=== PATIENT | male | born 1970 | race Caucasian/White ===

== ENCOUNTER → 2017-02-08 | Outpatient (CLI) | payer OTHER ==
[2017-02-08 12:31] LABS: URINE APPEARANCE CLEAR (CLEAR); URINE BILIRUBIN NEG (NEG); URINE COLOR YELLOW; URINE EPITHELIAL CELL AUTO 0-5 /lpf (0-5); URINE NITRITE NEG (NEG); URINE SPECIFIC GRAVITY 1.023 (1.000-1.030); UROBILINOGEN NEG (NEG)
[2017-02-08 12:37] LABS: MANUAL MICROSCOPIC REQUIRED? NO; REVIEW REQ? NO
[2017-02-08 12:58] LABS: ESTIMATED AVERAGE GLUCOSE 114 mg/dl; HA1C FLAG Normal (Normal)
[2017-02-08 13:02] LABS: CREATININE, URINE 80.6 mg/dl; URINE PROTIEN/CREAT RATIO 0.1 (0-0.2); URINE TOTAL PROTEIN 6.1 mg/dl (0-11.9)
[2017-02-08 17:44] LABS: BLOOD UREA NITROGEN 14 mg/dl (7-18); BUN/CREATININE RATIO 19.9 (10-20); CALCIUM 9.4 mg/dl (8.5-10.1); CARBON DIOXIDE 26 mmol/L (21-32); CHLORIDE 104 mmol/L (98-107); CREATININE 0.69 mg/dl (0.60-1.40); GLUCOSE 89 mg/dl (70-99); POTASSIUM 4.3 mmol/L (3.5-5.1); SODIUM 138 mmol/L (136-145)
[2017-02-08 17:54] LABS: THYROID STIMULATING HORMONE 0.489 uIu/ml (0.300-4.500)
== END | disposition home or self-care (01) ==
LOC: C.LABBFT 10:46
PROVIDERS: ATTEND Physician Assistant Medical
DX: I10 Essential (primary) hypertension (principal); R73.09 Other abnormal glucose

== ENCOUNTER → 2017-02-15 | Outpatient (CLI) | payer OTHER ==
--- NOTE | 2017-02-15 09:17 | DIAGNOSTIC IMAGING REPORT ---
(RENAL)RETROPERITON COMP HISTORY: Hypertension I10 [id number] COMPARISON: None. FINDINGS: Right kidney: Maximum dimension 11.1 cm. No evidence for hydronephrosis. Mild extrarenal pelvis. Normal corticomedullary differentiation and cortical thickness. Left kidney: Maximum dimension 12.0 cm. Normal corticomedullary differentiation and cortical thickness. Bladder: No bladder wall thickening. The bilateral ureteral jets were identified. IMPRESSION: Normal renal ultrasound. The above report was generated using voice recognition software. It may contain grammatical, syntax or spelling errors. Electronically signed by: Gutierrez Johnson M.D. 02/15/2017 9:16 AM Dictated Date/Time: 02/15/2017 9:15 AM
== END | disposition home or self-care (01) ==
LOC: C.ULTR 08:33
PROVIDERS: ATTEND Physician Assistant Medical
DX: I10 Essential (primary) hypertension (principal)

== ENCOUNTER → 2017-12-05 | Outpatient (CLI) | payer OTHER ==
[2017-12-05 12:39] LABS: BASO % 0.5 %; BASO ABS # 0.04 K/uL (0-0.2); EOS % 2.3 %; EOS ABS # 0.17 K/uL (0-0.5); HEMATOCRIT 44.8 % (42-52); IG# 0.02 K/uL (0.00-0.02); LYMPH % 29.4 %; LYMPH ABS # 2.22 K/uL (1.2-3.4); MEAN CELL VOLUME 93.1 fL (80-100); MEAN CORPUSCULAR HEMOGLOBIN 31.2 pg (25-34); MEAN CORPUSCULAR HGB CONC 33.5 g/dl (32-36); MEAN PLATELET VOLUME 10.3 fL (7.4-10.4); MONO % 10.9 %; MONO ABS # 0.82 K/uL (0.11-0.59); NEUT % 56.6 %; NEUT ABS # 4.28 K/uL (1.4-6.5); PLATELET COUNT 237 K/uL (130-400); RED CELL DISTRIBUTION WIDTH CV 13.4 % (11.5-14.5); RED CELL DISTRIBUTION WIDTH SD 45.7 fL (36.4-46.3); WHITE BLOOD COUNT 7.55 K/uL (4.8-10.8)
[2017-12-05 13:37] LABS: ALBUMIN 3.9 gm/dl (3.4-5.0); ALKALINE PHOSPHATASE 68 U/L (45-117); ALT/SGPT 56 U/L (12-78); AST/SGOT 18 U/L (15-37); BLOOD UREA NITROGEN 16 mg/dl (7-18); CALCIUM 8.9 mg/dl (8.5-10.1); CARBON DIOXIDE 25 mmol/L (21-32); CHOLESTEROL 179 mg/dl (0-200); CREATININE 0.76 mg/dl (0.60-1.40); GLUCOSE 97 mg/dl (70-99); LDL CHOLESTEROL CALCULATED 107 mg/dl; POTASSIUM 3.9 mmol/L (3.5-5.1); SODIUM 136 mmol/L (136-145); TOTAL PROTEIN 7.7 gm/dl (6.4-8.2)
== END | disposition home or self-care (01) ==
LOC: C.LABBFT 09:42
PROVIDERS: ATTEND Internal Medicine
DX: I10 Essential (primary) hypertension (principal)

== ENCOUNTER 2024-05-30 14:20 | Observation (INO) ==
--- NOTE | 2024-05-30 14:50 | ED Triage Note ---
Date of Service May 30, 2024 Provider in Triage Author: Jeannie Cheng History of Present Illness This patient was briefly evaluated while in triage. An abbreviated physical exam was performed. This patient is a 54-year-old Male who presents to the ED for evaluation sick x 4 days cough, fevers, congestion, nausea, diarrhea since Tuesday, SOB seen by PCP Covid and Flu negative, creatinine elevated from baseline to 1.68 weight loss Physical Exam GENERAL: NAD, T37.6 CARDIOVASCULAR: RRR RESPIRATORY: CTA ABDOMEN: BS x 4. Nontender to palpation. Initial orders for labs and / or imaging were placed and patient was placed in the waiting area until a bed is available. Please see further documentation for the full ED course.
[2024-05-30] MEDS: SODIUM CHLORIDE 0.9% 1,000 ML IV SCH (15:42)
[2024-05-30 15:54] LABS: Adenovirus PCR Not Detected (NotDetected); Bordetella parapertussis PCR Not Detected (NotDetected); Bordetella pertussis PCR Not Detected (NotDetected); Chlamydia pneumoniae PCR Not Detected (NotDetected); Coronavirus 229E PCR Not Detected (NotDetected); Coronavirus CoV-2 (COVID19)PCR Not Detected (NotDetected); Coronavirus HKU1 PCR Not Detected (NotDetected); Coronavirus NL63 PCR Not Detected (NotDetected); Coronavirus OC43PCR Not Detected (NotDetected); Human Metapneumovirus PCR Not Detected (NotDetected); Influenza A (H3) PCR DETECTED (NotDetected); Influenza B PCR Not Detected (NotDetected); Mycoplasma pneumoniae PCR Not Detected (NotDetected); Parainfluenza Virus 1 PCR Not Detected (NotDetected); Parainfluenza Virus 2 PCR Not Detected (NotDetected); Parainfluenza Virus 3 PCR Not Detected (NotDetected); Parainfluenza Virus 4 PCR Not Detected (NotDetected); Respiratory Syncytial VirusPCR Not Detected (NotDetected); Rhinovirus/Enterovirus PCR Not Detected (NotDetected)
--- NOTE | 2024-05-30 15:55 | Electrocardiogram Report ---
Test Reason : Blood Pressure : */* mmHG Vent. Rate : 105 BPM Atrial Rate : 105 BPM P-R Int : 122 ms QRS Dur : 92 ms QT Int : 312 ms P-R-T Axes : 61 254 61 degrees QTcB Int : 412 ms Sinus tachycardia Right superior axis deviation Incomplete right bundle branch block Left anterior fascicular block Abnormal ECG When compared with ECG of 13-Oct-2023 12:05, No significant change Confirmed by Galdino Shankar ([id number]) on 05/30/2024 3:55:09 PM Referred By: Confirmed By: Galdino Shankar
[2024-05-30 16:07] LABS: Basophils # (auto) 0.01 K/uL (0.00-0.20); Basophils % (auto) 0.1 %; Hematocrit (blood only) 46.7 % (42.0-52.0); Hemoglobin 15.7 g/dl (14.0-18.0); Immature Granulocytes # (auto) 0.05 K/uL (0.01-0.20); Immature Granulocytes % (auto) 0.5 %; Lymphocytes # (auto) 1.05 K/uL (1.20-3.40); Lymphocytes % (auto) 9.6 %; Mean Corpuscular Hemoglobin 30.7 pg (25.0-34.0); Mean Corpuscular Hgb Conc 33.6 g/dL (32.0-36.0); Mean Corpuscular Volume 91.2 fL (80.0-100.0); Mean Platelet Volume 10.6 fL (9.4-12.4); Monocytes # (auto) 1.35 K/uL (0.11-0.59); Monocytes % (auto) 12.3 %; Neutrophils # (auto) 8.48 K/uL (1.40-6.50); Neutrophils % (auto) 77.5 %; Platelet Count 157 K/uL (130-400); RDW Coefficient of Variation 13.9 % (11.5-14.5); RDW Standard Deviation 47.4 fL (36.4-46.3); Red Blood Count 5.12 M/uL (4.70-6.10); White Blood Count 10.94 K/ul (4.8-10.8)
[2024-05-30 16:29] LABS: Albumin Globulin Ratio 1.1 (0.9-2); Albumin Level 4.2 gm/dl (3.4-5.0); BUN Creatinine Ratio 36.5 (10-20); Bilirubin,Total 0.5 mg/dl (0.2-1.0); Calcium 9.1 mg/dl (8.6-10.3); Creatinine Clr Calc Pharmacy 50.7 ml/min; Potassium 4.4 mmol/L (3.5-5.1); Total Protein 8.2 gm/dl (6.0-8.3)
--- NOTE | 2024-05-30 16:29 | Emergency Department Note ---
Impression & Plan Acute kidney injury, Influenza, Acute dehydration, Diarrhea, SOB (shortness of breath) ED Provider Note CHIEF COMPLAINT: Cough, shortness of breath, diarrhea, dehydration HISTORY OF PRESENTING ILLNESS: This 54-year-old male patient presents to the emergency department with his for evaluation of a cough that started 4 days ago. He then started with diarrhea 3 days ago. He is having trouble keeping anything down because he has to run straight to the bathroom after eating or drinking anything. Having 10 watery BMs a day. He feels like he is dehydrated. The patient states that he lost 10 pounds in the past 5 days. The patient feels like he has had fevers, but did not check his temp. He is also complaining of chest pain and shortness of breath from the coughing. He denies any urinary symptoms. He denies any abdominal pain. He wears CPAP at night. Denies recent antibiotic use, recent travel, or drinking from outside water sources/well water. No previous history of C. Diff. The patient's daughter had similar symptoms last week, but her symptoms resolved after 2 days. He has taken Nyquil at night for his symptoms. The patient saw urgent care yesterday and had blood work obtained that showed that his kidney functions were elevated. No history of elevated kidney functions in the past. The patient states that he also had viral testing performed that was negative. The patient states that his symptoms are worse today and he became concerned. The patient apparently got dizzy and the protocol room and became diaphoretic. His blood pressure checked and it was 111/60. The patient was given IV fluids and observed in the protocol room with resolution of his symptoms. REVIEW OF SYSTEMS: See HPI for pertinent positives and pertinent negatives. ALLERGIES: Cephalexin MEDICATIONS: See below PAST MEDICAL HISTORY: See below PHYSICAL EXAM: Vital Signs: Vitals are noted on the nurse's note and reviewed by myself. GENERAL: The patient appears uncomfortable on exam. However, he is still non toxic in appearance and in no acute distress. SKIN: Capillary reflex less than 2 seconds. HEAD: Normocephalic, atraumatic. EARS: Bilateral external auditory canals clear without tragus tenderness. Bilateral tympanic membranes pearly marinelli without erythema or effusion. No mastoid tenderness bilaterally. EYES: Pupils equal round and reactive to light and accommodation. Conjunctivae without injection, sclerae without icterus. Extraocular movements intact. NOSE: Patent, turbinates inflamed with no discharge. No sinus tenderness. MOUTH: Tongue is dry, but other mucous membranes are still moist. Airway patent, uvula midline. Pharynx is not erythematous and not edematous without exudate. Pharynx without postnasal drip. No evidence for peritonsillar abscess. NECK: Supple without nuchal rigidity. No lymphadenopathy. HEART: Regular rate and rhythm without murmurs gallops or rubs. LUNGS: Clear to auscultation bilaterally without wheezes, rales or rhonchi. No accessory muscle use or retractions. ABDOMEN: Positive bowel sounds x 4. Normal tympanic percussion. Soft, nontender to palpation. No masses or hepatosplenomegaly. No guarding, rigidity, or rebound tenderness. No CVA tenderness. No focal RLQ or LLQ tenderness. NEURO: Patient was alert and oriented. DIFFERENTIAL DIAGNOSIS: Differential diagnosis includes gastroenteritis, norovirus, influenza, COVID, other viral etiology, bacterial infection, renal failure, dehydration, hepatitis, pancreatitis, cholecystitis, cholelithiasis, appendicitis, kidney stone, pyelonephritis, UTI, gastritis, gastroenteritis, mesenteric adenitis, obstruction, constipation, hernia, abdominal abscess, perforation, diverticulitis, IBD, ischemic colitis, abdominal aortic aneurysm, testicular torsion, prostatitis, or others. ED COURSE AND MEDICAL DECISION MAKING: HISTORY FROM INDEPENDENT HISTORIAN: Additional history obtained from the patient's . MEDICATIONS GIVEN: A total of 2 L normal saline solution bolus. Tylenol 1000 mg IV. DuoNeb treatment x 2. Tamiflu 30 mg p.o. MONITOR: Continuous general manager farm: Order was placed for continuous general manager farm. Patient was placed on the general manager farm and continuous pulse ox. Patient was noted to be in sinus tachycardia at an initial rate of 108 bpm per my interpretation. EKG: EKG was interpreted by myself as sinus tachycardia at 105 bpm with right superior axis deviation and incomplete right bundle branch block, but no acute ST or T wave changes or significant change from his previous EKG. INTERPRETATION OF LABS: I interpreted the labs with full lab results as below in the lab section of this note. Laboratory results pertinent to the emergent complaint are discussed in the MDM section below. The patient was advised to follow up with their PCP and/or specialist(s) for further outpatient monitoring and management of any abnormal results. INTERPRETATION OF IMAGING: Imaging studies were interpreted by myself and read by radiology as per the imaging section of this note. The patient was advised to follow up with their PCP and/or specialist(s) for further outpatient management of any non-emergent abnormal findings. Chest x-ray negative for pneumonia or other acute cardiopulmonary etiology. CONSULTATIONS: On-call hospitalist MDM SUMMARY: The patient was seen during a time of extreme volume and extreme acuity. Nursing triage protocols were initiated with IV lock, labs, and/or imaging studies conducted by protocol in the triage area. The patient was examined by myself once they were taken back to an exam room. The patient started with a cough 4 days ago. He then developed diarrhea 3 days ago. He states that he is having up to 10 watery bowel movements a day and feels like he is dehydrated. He states that he lost 10 pounds in the past 5 days. He also is having some mild chest pain and shortness of breath from the coughing. He denies any abdominal pain. He was seen in urgent care yesterday and had blood work that showed that his renal functions were elevated with no history of previous kidney problems. The patient had already been in the ER for approximately 1 hour and 40 minutes prior to my evaluation. Sepsis workup was not initiated in triage. The patient was still tachycardic and he had been febrile and had a few episodes of hypotension noted by nursing staff on the monitor. Nursing staff sent me a Harris text saying that his blood pressure had been as low as 90/56. Therefore, additional septic workup was ordered by myself at that time. There was also a delay in obtaining blood work including a lactate and blood cultures as nursing staff stated they had trouble obtaining additional blood from the patient. The patient was given a total of 2 L normal saline solution bolus via his ideal body weight. Antibiotics were held as there was no obvious bacterial infectious etiology and there was concern for giving antibiotics with his copious diarrhea. The patient's fever resolved after IV Tylenol. His blood pressure improved after the 2 L of normal saline solution bolus. White blood cell count was mildly elevated at 10.94. Hemoglobin normal at 15.7. Platelet count normal at 157. The patient has evidence for a worsening acute kidney injury with a creatinine of 1.78 and BUN of 65. Yesterday his creatinine was 1.68 and BUN 45. Prior to yesterday, the patient's renal functions were normal. The remainder of the CMP without significant abnormality. Magnesium slightly elevated at 2.5. High-sensitivity troponin normal. Lactate was normal at 1.1, but procalcitonin slightly elevated at 0.70. The patient was finally able to urinate after the 2 L of IV fluids. Urinalysis showed trace ketones and 1+ blood, but no evidence for UTI. C. difficile was negative. Stool BioFire was negative. Respiratory BioFire was positive for influenza A. Chest x-ray negative for pneumonia or other acute cardiopulmonary etiology. The patient was given DuoNeb treatments x 2 with improvement of his breathing. I had a meaningful discussion about this patient with Dr. Vu who agrees with my assessment and the treatment plan. Even though the patient may be out of the window for treatment with Tamiflu, given the acute kidney injury, Tamiflu was recommended. I spoke with the hospital pharmacist who recommended the patient receive Tamiflu 30 mg twice daily due to his creatinine clearance. The patient's symptoms may all be secondary to his influenza A. However, due to his abnormal laboratory studies, worsening renal functions, significant dehydration, elevated procalcitonin, and abnormal vital signs we feel the patient would benefit from admission for further inpatient evaluation and treatment. I spoke with the on-call hospitalist who agreed to admit the patient for further evaluation and treatment. Please refer to their dictation for further details. The patient's care was transferred in stable condition. DIAGNOSIS: Acute kidney injury Influenza A Dehydration Shortness of breath Diarrhea Past Med/Surg History Problem List (Updated 05/31/24 @ 01:49 by Monique Simon PA-C) SOB (shortness of breath) (Acute) Diarrhea (Acute) Acute dehydration (Acute) Influenza (Acute) Acute kidney injury (Acute) Stenosis of right external carotid artery Internal carotid artery stenosis Severe obstructive sleep apnea HLD (hyperlipidemia) Lateral epicondylitis, left elbow CMC arthritis Osteoarthritis of thumbs, bilateral Nocturnal hypoxemia Class 1 obesity due to excess calories with serious comorbidity and body mass index (BMI) of 34.0 to 34.9 in adult Excessive daytime sleepiness Prediabetes Dyslipidemia Daytime sleepiness Snoring GERD (gastroesophageal reflux disease) Fatigue (Acute) Elevated glucose (Acute) Derangement of left knee (Acute) Smoker unmotivated to quit Hypersomnolence Hypertension Medical History Snoring GERD (gastroesophageal reflux disease) on occasion Bilateral inguinal hernia without obstruction or gangrene Syncope and collapse Acne Anxiety Surgical History H/O bilateral inguinal hernia repair (06/04/20) Bilateral Laparoscopic Inguinal Hernia Repair Dr. Moreau 06/04/2020 History of tooth extraction Family History Aunt Breast cancer Grandfather (Maternal) Myocardial infarction Denies family history of Ovarian cancer Prostate cancer Colorectal cancer Social History Smoking Status: Current every day smoker Tobacco Type: Cigarettes Age Started Using Tobacco: 17; packs per day: 1.5; Cigarettes Per Day: 1 pack per day; Second Hand Exposure: No; Do You Dip or Chew Tobacco: No; Tobacco Cessation Education Requested by Patient: No Hx Alcohol Use: No Hx Substance Use: No Preferred Language: Hebrew Communication Ability: Effective Visual Impairment: No Limitations Hearing Ability: Normal Manifold Builder Required: No Beliefs That Will Affect Care: None marital status: Current Living Situation: Spouse current occupational status: employed 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 Other Information That Helps Us Care for You: No Feels Safe at Home: Yes Childhood Exposure to Second-Hand Smoke: Yes Diet: regular caffeine: Yes during the past year weight has: remained stable Dental Care, Regularly: No Physical Activity Frequency: 5-6 Times per Week Seatbelt Use: never Sunscreen Use: No Assistive Devices: CPAP Allergies Allergies Allergy/AdvReac Type Severity Reaction Status Date / Time cephalexin Allergy Intermediate Dizziness Verified 01/06/24 07:48 Home Meds Home Medications Medication Instructions Recorded Confirmed amlodipine 5 mg tablet 5 mg PO QAM 05/30/24 05/30/24 aspirin 81 mg chewable tablet 81 mg PO QAM 05/30/24 05/30/24 (Children's Aspirin) eplerenone 50 mg tablet (Inspra) 50 mg PO QAM 05/30/24 05/30/24 olmesartan 40 mg tablet 40 mg PO QAM 05/30/24 05/30/24 Results & Data (ED) Vital Signs Vital Signs - 24 hr 05/30/24 14:47 05/30/24 16:34 05/30/24 16:38 Temperature 37.6 C H Temperature Source Temporal Artery Scan Pulse Rate 109 H 102 H Pulse Rate [Apical] 101 H Respiratory Rate 17 16 Blood Pressure 145/76 H Blood Pressure [Right Arm] Blood Pressure Mean 99 Blood Pressure Mean [Right Arm] Pulse Oximetry 93 93 Oxygen Delivery Method Room Air Room Air Sepsis Recent Fever Within 48 Hours Yes Sepsis New/Unexplained Change in Mental Status N/A Sepsis Action Taken by Nursing No Action Required 05/30/24 16:58 05/30/24 18:17 Temperature 37.0 C Temperature Source Oral Pulse Rate Pulse Rate [Apical] 87 Respiratory Rate 16 Blood Pressure Blood Pressure [Right Arm] 104/52 L 117/66 Blood Pressure Mean Blood Pressure Mean [Right Arm] 69 83 Pulse Oximetry 93 Oxygen Delivery Method Room Air Sepsis Recent Fever Within 48 Hours Sepsis New/Unexplained Change in Mental Status Sepsis Action Taken by Nursing Laboratory Data 05/30/24 Unknown 05/30/24 Unknown Lab Results 05/30/24 05/30/24 Range/Units 16:20 17:41 Lactate 1.1 (0.4-2.0) mmol/L Procalcitonin 0.70 H (0-0.5) ng/ml Stl C. cayetanensis PCR Not Detected (NotDetected) Stool Rotavirus A PCR Not Detected (NotDetected) Stl Adenov F 40/41 PCR Not Detected (NotDetected) Stool Astrovirus (PCR) Not Detected (NotDetected) Stool Campylobacter PCR Not Detected (NotDetected) Stool Cryptosporidium PCR Not Detected (NotDetected) Stl E.coli Shiga Tox PCR Not Detected (NotDetected) Stl Enterotoxigenic E PCR Not Detected (NotDetected) Stool EPEC (PCR) Not Detected (NotDetected) Stool EAEC (PCR) Not Detected (NotDetected) Stl E. histolytica PCR Not Detected (NotDetected) Stool Giardia Lamblia PCR Not Detected (NotDetected) Stool Salmonella PCR Not Detected (NotDetected) Stool Sapovirus (PCR) Not Detected (NotDetected) Stl P. shigelloides PCR Not Detected (NotDetected) Stl Shigella/EIEC PCR Not Detected (NotDetected) St Y.enterocolitica PCR Not Detected (NotDetected) Stool Vibrio (PCR) Not Detected (NotDetected) Stl Vibrio cholerae PCR Not Detected (NotDetected) Stl Norovirus GI/GII PCR Not Detected (NotDetected) Administered Medications Heparin Sodium (Porcine) (Heparin Sod 5,000 Unit/0.5 Ml Vial) 5,000 units SQ Q12 MALIK Stop: 06/29/24 21:03 Last Admin: 05/30/24 21:55 Dose: Not Given Documented By: TRE Lactated Ringer's (Lr) 1,000 mls @ 125 mls/hr IV .Q8H MALIK Stop: 05/31/24 21:03 Last Admin: 05/30/24 21:16 Dose: 125 mls/hr Documented By: TRE Discontinued Medications Albuterol (Albut/Ipratrop 3mg/0.5mg Neb 3 Ml Vial) 3 ml NEB NOW STA; Protocol Stop: 05/30/24 16:39 Last Admin: 05/30/24 16:56 Dose: 3 ml Documented By: JONO Albuterol (Albut/Ipratrop 3mg/0.5mg Neb 3 Ml Vial) 3 ml NEB NOW STA; Protocol Stop: 05/30/24 18:18 Last Admin: 05/30/24 18:25 Dose: 3 ml Documented By: JONO Sodium Chloride (Nss) 1,000 mls @ 999 mls/hr IV .Q1H1M MALIK Stop: 05/30/24 15:52 Last Infusion: 05/30/24 17:04 Dose: Infused Documented By: Admin: 05/30/24 15:42 Dose: 999 mls/hr Documented By: ÁNGEL Acetaminophen (Ofirmev) 1,000 mg in 100 mls @ 400 mls/hr IV NOW STA Stop: 05/30/24 16:52 Last Infusion: 05/30/24 17:10 Dose: Infused Documented By: Admin: 05/30/24 16:55 Dose: 400 mls/hr Documented By: JONO Sodium Chloride (Nss) 1,000 mls @ 999 mls/hr IV .Q1H1M ONE Stop: 05/30/24 17:59 Last Infusion: 05/30/24 18:17 Dose: Infused Documented By: Admin: 05/30/24 17:04 Dose: 999 mls/hr Documented By: JONO Oseltamivir Phosphate (Oseltamivir Phosphate Susp 30 Mg/5 Ml Udp) 30 mg PO NOW STA; Protocol Stop: 05/30/24 19:09 Last Admin: 05/30/24 19:33 Dose: 30 mg Documented By: JONO Imaging Data Radiologist's Impression: Chest X-Ray 05/30/24 14:50 EXAM: X-ray chest one-view portable CLINICAL HISTORY: Cough, dyspnea PRIORS: 10/13/2023 TECHNIQUE: AP upright chest FINDINGS: The chest is well-expanded. No airspace consolidation, effusion or congestive changes. Heart size is normal. No pneumothorax. Trachea is patent. Osseous structures demonstrate no acute abnormality. No radiopaque foreign body. IMPRESSION: No plain film evidence of an acute cardiopulmonary process. Electronically signed by Erinn Anderson 05-30-2024 4:47 PM Discharge Plan Visit Data Chief Complaint: Flu Like Symptoms Stated Complaint: DEHYDRATION, SOB, DIARRHEA/5 DAYS, 10LBS LOSS ED Provider: Kilo Vu ED Midlevel Provider: Monique Simon Discharge Problem: Acute kidney injury, Influenza, Acute dehydration, Diarrhea, SOB (shortness of breath) Patient Disposition: Admitted As Inpatient Condition: Good Discharge Instructions Interventions: ED Discharge Assessment Last Done: 05/30/24 20:42 Discharge Problem: Diarrhea Qualifiers: Diarrhea type: unspecified type Qualified Code(s): R19.7 - Diarrhea, unspecified
[2024-05-30 16:43] LABS: Troponin I High Sensitivity 10.2 pg/ml (0-20)
--- NOTE | 2024-05-30 16:47 | XRay Report ---
EXAM: X-ray chest one-view portable CLINICAL HISTORY: Cough, dyspnea PRIORS: 10/13/2023 TECHNIQUE: AP upright chest FINDINGS: The chest is well-expanded. No airspace consolidation, effusion or congestive changes. Heart size is normal. No pneumothorax. Trachea is patent. Osseous structures demonstrate no acute abnormality. No radiopaque foreign body. IMPRESSION: No plain film evidence of an acute cardiopulmonary process. Electronically signed by Erinn Anderson 05-30-2024 4:47 PM
[2024-05-30] MEDS: ACETAMINOPHEN 1,000 MG/100 ML VIAL IV STA (16:55)
[2024-05-30] MEDS: ALBUT/IPRATROP 3MG/0.5MG NEB 3 ML VIAL NEB STA ×2 (16:56→18:25)
[2024-05-30 17:00] LABS: Magnesium 2.5 mg/dl (1.7-2.4)
[2024-05-30] MEDS: SODIUM CHLORIDE 0.9% 1,000 ML IV ONE (17:04)
[2024-05-30 17:49] LABS: Adenovirus F 40/41 PCR Not Detected (NotDetected); Astrovirus PCR Not Detected (NotDetected); Campylobacter PCR Not Detected (NotDetected); Cryptosporidium PCR Not Detected (NotDetected); Cyclospora cayetanensis PCR Not Detected (NotDetected); Entamoeba histolytica PCR Not Detected (NotDetected); Enteroaggregative E.coli(EAEC) Not Detected (NotDetected); Enteropathogenic E.coli (EPEC) Not Detected (NotDetected); Enterotoxigenic E.coli (ETEC) Not Detected (NotDetected); Giardia lamblia PCR Not Detected (NotDetected); Norovirus GI/GII PCR Not Detected (NotDetected); Plesiomonas shigelloides PCR Not Detected (NotDetected); Rotavirus A PCR Not Detected (NotDetected); Salmonella PCR Not Detected (NotDetected); Sapovirus PCR Not Detected (NotDetected); Shiga-like Toxin E.coli (STEC) Not Detected (NotDetected); Shigella/Enteroinvasive E.coli Not Detected (NotDetected); Vibrio cholerae PCR Not Detected (NotDetected); Vibrio species PCR Not Detected (NotDetected); Yersinia enterocolitica PCR Not Detected (NotDetected)
--- NOTE | 2024-05-30 19:31 | History & Physical Report ---
Date of Service May 30, 2024 Assessment & Plan (1) Acute kidney injury: (2) Influenza: Plan Patient is a 54-year-old male PMHx severe BRINA, HLD, prediabetes, GERD, and HTN presenting to ED for ongoing cough for the past 4-5 days with associated diarrhea and SOB. States that he was sent to the ED from PCP office for elevated kidney function (05/29/2023). Patient with evidence of leukocytosis (10.94), creatinine 1.79, BUN 65, magnesium 2.5, and Pro-Theo 0.70. BioFire was positive for influenza A, but CXR reveals no acute findings. EKG was sinus tachycardia around 105 bpm, and stool studies were negative. Was provided with 2L NSS in ED as well as 2 albuterol nebulizers, Tylenol, and a dose of Tamiflu. #ANGY Likely secondary to renal hypoperfusion from past 3 days of diarrhea and past 5 days of poor oral intake. Was evaluated by PCP on 05/29 for diarrhea and URI symptoms; Labs are drawn at that time with creatinine 1.68, BUN 45. No prior renal disease. - Cr increased from 1.68 (outpatient) to 1.78, BUN elevated from 45 to 65; UA pending, bladder scan pending, BMP am - Given 2L NSS in ED- will adjust fluids to maintenance rate with LR compared to NSS (if possible given fluid shortage) - 125 mL/hr - Bladder scan prn - Hold/avoid nephrotoxic agents - NSAIDs; hold amlodipine, olmesartan, eplerenone #Influenza A/Sepsis Symptoms of cough, SOB, chest discomfort from coughing, and watery diarrhea (10 times per day) with a 10 pound weight loss over the past week. Technically meets sepsis/SIRS criteria at time of arrival to ED (T > 36, HR >90), but at time of hospitalist visit, hemodynamically stable. Was hypotensive in ED prior to hospitalist evaluation and was provided with 2L NSS at that time. BP at time of evaluation 110's/60's - Evidence of leukocytosis on admission (10K), procal elevated 0.7, lactate WNL, BioFire positive influenza A, CXR without acute findings; pending blood cultures - Received 2L NSS in ED; calculated fluids for sepsis 2,018 mL - WNL lactate but pt became hypotensive so will provide w/ fluid criteria - Continue maintenance fluids as above - Patient started on Tamiflu in ED, renally dosed - continue 30mg po BID - SOB/cough- DuoNeb utilized x 2 in ED; Alb neb prn, acetaminophen prn; O2 prn (none at baseline) - Diarrhea- Stool biofire negative, advance diet as tolerated - No abx started at admission - leukocytosis, fever, and elevated procal likely 2/2 influenza, independent of superimposed bacteria infection #HTN- Amlodipine 5mg, olmesartan 40mg, Eplerenone 50mg BID (being held by PCP)- Hold all #Prediabetes- Managed with diet #BRINA, severe- BiPAP 07/12 BiFlex 2 - continue at night #HLD- States that he is on Rosuvastatin 10mg but no fill history ? - hold while inpatient until can be confirmed Dispo: Admit, observation VTE prophylaxis: Heparin This document was dictated utilizing [employer]. Please excuse any grammatical errors that may be secondary to use of this software. Admission and Anticipated Discharge Date Admission Date: 05/30/2024 History of Present Illness Chief Complaint: ANGY, flu like symptoms Primary Care Provider: Ernesto Padilla, DO Patient is a 54-year-old male PMHx severe BRINA, HLD, prediabetes, GERD, and HTN presenting to ED for ongoing cough for the past 4-5 days with associated diarrhea and SOB. States that he was sent to the ED from PCP office for elevated kidney function. Symptoms started approximately 5 days ago where he was having a cough with some yellow sputum production as well as shortness of breath. States that the shortness of breath slowly worsened over the past 5 days [employer]EMASTER and was concerning to him because he felt that he could not even get up from his bed to the bathroom without becoming short of breath. States that throughout the course of the symptoms he did have feelings of being feverish but did not actually take his temperature. Is having some chest and belly pain but is only when he is coughing, and not at rest. Approximately 2 days DIVEMASTER the cough started to improve slightly, but approximately 3 days DIVEMASTER the patient started to have multiple bouts of diarrhea per day, reaching around 10 times per day or anytime that he would try to have any oral intake. Denies associated abdominal pain with this or nausea/vomiting. States that over the past week he has lost approximately 10 pounds because he has been unable to tolerate oral intake. Has felt weak since the symptoms started, but has not had any episodes of syncope or falls. Patient did not receive his influenza vaccine and does not routinely receive this vaccine. Patient's main concern is that his kidney function was reported to be poor by PCP which is why he came to the ED initially. ED evaluation reveals leukocytosis of 10.94, creatinine 1.79, BUN 65, ratio 36.5, magnesium 2.5, Pro-Theo 0.70, and BioFire positive for influenza A. Stool studies negative. CXR reveals no acute findings and EKG sinus tachycardia heart rate 105 bpm. Provided with 2L NSS, albuterol 3 mL nebs x 2, and acetaminophen 1 g IV in ED. Please see Dr. Johnson's attestation for adjustments/additions to treatment plan. Allergies Allergy/AdvReac Type Severity Reaction Status Date / Time cephalexin Allergy Intermediate Dizziness Verified 01/06/24 07:48 Home Medications Medication Instructions Recorded Confirmed Type amlodipine 5 mg tablet 5 mg PO DAILY #90 tabs 08/08/23 05/30/24 Rx olmesartan 40 mg tablet 40 mg PO DAILY #90 tabs 08/08/23 05/30/24 Rx aspirin 81 mg tablet 81 mg PO DAILY 05/30/24 05/30/24 History eplerenone 50 mg tablet (Inspra) 50 mg PO BID 05/30/24 05/30/24 History Past Med/Surg History Problem List (Updated 05/30/24 @ 20:12 by Osiel Del Angel PA-C) Influenza Acute kidney injury Stenosis of right external carotid artery Internal carotid artery stenosis Severe obstructive sleep apnea HLD (hyperlipidemia) Lateral epicondylitis, left elbow CMC arthritis Osteoarthritis of thumbs, bilateral Nocturnal hypoxemia Class 1 obesity due to excess calories with serious comorbidity and body mass index (BMI) of 34.0 to 34.9 in adult Excessive daytime sleepiness Prediabetes Dyslipidemia Daytime sleepiness Snoring GERD (gastroesophageal reflux disease) Fatigue (Acute) Elevated glucose (Acute) Derangement of left knee (Acute) Smoker unmotivated to quit Hypersomnolence Hypertension Medical History Snoring GERD (gastroesophageal reflux disease) on occasion Bilateral inguinal hernia without obstruction or gangrene Syncope and collapse Acne Anxiety Surgical History H/O bilateral inguinal hernia repair (06/04/20) Bilateral Laparoscopic Inguinal Hernia Repair Dr. Moreau 06/04/2020 History of tooth extraction Family History Aunt Breast cancer Grandfather (Maternal) Myocardial infarction Denies family history of Ovarian cancer Prostate cancer Colorectal cancer Social History Smoking Status: Current every day smoker Tobacco Type: Cigarettes Age Started Using Tobacco: 17; packs per day: 1.5; Cigarettes Per Day: 1 ppd; Second Hand Exposure: Yes (as kid); Do You Dip or Chew Tobacco: No; Hx Alcohol Use: Yes Alcohol type: beer Hx Substance Use: No Preferred Language: Mongolian Communication Ability: Effective Visual Impairment: No Limitations Hearing Ability: Normal Paving Bed Maker Required: No Beliefs That Will Affect Care: None marital status: Current Living Situation: Spouse current occupational status: employed 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 Feels Safe at Home: Yes Childhood Exposure to Second-Hand Smoke: Yes Diet: regular caffeine: Yes during the past year weight has: remained stable Dental Care, Regularly: No Physical Activity Frequency: 5-6 Times per Week Seatbelt Use: never Sunscreen Use: No Assistive Devices: None Review of Systems Review of Systems: All systems reviewed & are unremarkable except as noted in Subjective Physical Exam Physical Exam: General: No acute distress Skin: Warm, slightly diaphoretic Head: Normocephalic, atraumatic Eyes: PERRL, conjunctivae clear, sclera non-icteric ENT: External ear and ear canal without swelling; nose atraumatic; good dentition, tongue normal appearance, pharynx normal; voice sounds nasally Neck: Supple, no LAD; no JVD Cardio: RRR, no M/G/R, S1 and S2 normal Resp: No respiratory distress, Lungs CTA in all lobes bilaterally, no wheezes, rales, or rhonchi Abdomen: Soft, symmetric, nontender; No masses or hepatosplenomegaly; Bowel sounds normoactive MSK: No deformities; pulses palpable and equal; no edema. Neuro: Awake, alert; CN grossly intact Psych: Appropriate mood and affect; good judgement and insight. Results & Data Results & Data Vital Signs (Past 12 Hours) Vital Signs Temp Pulse Pulse Resp BP BP Pulse Ox 05/30/24 18:17 37.0 C 87 16 117/66 93 05/30/24 16:58 104/52 L 05/30/24 16:38 102 H 05/30/24 16:34 101 H 16 93 05/30/24 14:47 37.6 C H 109 H 17 145/76 H 93 O2 Del Method 05/30/24 18:17 Room Air 05/30/24 16:58 05/30/24 16:38 05/30/24 16:34 Room Air 05/30/24 14:47 Room Air Laboratory Results 05/30/24 17:41 Aerobic Blood Culture - Pending Blood Anaerobic Blood Culture - Pending 05/30/24 17:41 Aerobic Blood Culture - Pending Blood Anaerobic Blood Culture - Pending 05/30/24 05/30/24 05/30/24 Unknown 17:41 16:20 WBC 10.94 H RBC 5.12 Hgb 15.7 Hct 46.7 MCV 91.2 MCH 30.7 MCHC 33.6 RDW Std Deviation 47.4 H RDW Coeff of [place] 13.9 Plt Count 157 MPV 10.6 Immature Gran % (Auto) 0.5 Neut % (Auto) 77.5 Lymph % (Auto) 9.6 [place] % (Auto) 12.3 Eos % (Auto) 0.0 Baso % (Auto) 0.1 Neut # (Auto) 8.48 H Lymph # (Auto) 1.05 L [place] # (Auto) 1.35 H Eos # (Auto) 0.00 Baso # (Auto) 0.01 Immature Gran # (Auto) 0.05 Sodium 136 Potassium 4.4 Chloride 103 Carbon Dioxide 22 Anion Gap 11 BUN 65 H D Creatinine 1.78 H Est Cr Clr Drug Dosing 50.7 eGFR 44.50 BUN/Creatinine Ratio 36.5 H Glucose 104 H Lactate 1.1 Calcium 9.1 Magnesium 2.5 H Total Bilirubin 0.5 AST 17 ALT 20 Alkaline Phosphatase 69 Troponin I High Sens 10.2 Total Protein 8.2 Albumin 4.2 Globulin 4.0 Albumin/Globulin Ratio 1.1 Lipase 17 Procalcitonin 0.70 H Stl C. cayetanensis PCR Not Detected Stool Rotavirus A PCR Not Detected Stl Adenov F 40/41 PCR Not Detected Stool Astrovirus (PCR) Not Detected Stool Campylobacter PCR Not Detected Stl C. diff Tox B Gene Negative Cdiff Gene Stool Cryptosporidium PCR Not Detected Stl E.coli Shiga Tox PCR Not Detected Stl Enterotoxigenic E PCR Not Detected Stool EPEC (PCR) Not Detected Stool EAEC (PCR) Not Detected Stl E. histolytica PCR Not Detected Stool Giardia Lamblia PCR Not Detected Stool Salmonella PCR Not Detected Stool Sapovirus (PCR) Not Detected Stl P. shigelloides PCR Not Detected Stl Shigella/EIEC PCR Not Detected St Y.enterocolitica PCR Not Detected Stool Vibrio (PCR) Not Detected Stl Vibrio cholerae PCR Not Detected Stl Norovirus GI/GII PCR Not Detected Adenovirus (PCR) Not Detected B. pertussis DNA (PCR) Not Detected B.parapertussis DNA PCR Not Detected C. pneumoniae DNA (PCR) Not Detected Coronavirus OC43 (PCR) Not Detected Coronavirus HKU1 (PCR) Not Detected Coronavirus 229E (PCR) Not Detected SARS-CoV-2 (PCR) Not Detected Coronavirus NL63 (PCR) Not Detected Human Metapneumovir PCR Not Detected Influenza A (H3) PCR DETECTED A Influenza Type B (PCR) Not Detected M. pneumoniae (PCR) Not Detected Parainfluenza 1 (PCR) Not Detected Parainfluenza 2 (PCR) Not Detected Parainfluenza 3 (PCR) Not Detected Parainfluenza 4 (PCR) Not Detected RSV (PCR) Not Detected Entero/Rhino (PCR) Not Detected Diagnostic Findings Chest X-Ray 05/30/24 14:50 EXAM: X-ray chest one-view portable CLINICAL HISTORY: Cough, dyspnea PRIORS: 10/13/2023 TECHNIQUE: AP upright chest FINDINGS: The chest is well-expanded. No airspace consolidation, effusion or congestive changes. Heart size is normal. No pneumothorax. Trachea is patent. Osseous structures demonstrate no acute abnormality. No radiopaque foreign body. IMPRESSION: No plain film evidence of an acute cardiopulmonary process. Electronically signed by Erinn Anderson 05-30-2024 4:47 PM Medications Administered NSS 2L IV Oseltamivir 30mg po x 1 Albuterol neb x 2 Acetaminophen 1g IV ECG Additional Comments: Sinus tachycardia, right superior axis deviation, incomplete RBBB, left anterior fascicular block 105 bpm, DE 122, QT/QTc 312/412, QRS 92, PRT 61/254/61 Code Status & VTE Plan Code Status Full PG Care Time/CCT Total # of Minutes Spent Total Time Spent with Patient: Total time spent is greater than 50% in coordination of care (as documented) at patient's floor/unit and/or counseling patient: Coding Level of Care Code 64187 INT INP/OBS CARE 3/75MIN Diagnoses Acute kidney injury N17.9 Influenza J11.1
[2024-05-30] MEDS: OSELTAMIVIR PHOSPHATE SUSP 30 MG/5 ML UDP PO STA (19:33)
[2024-05-30 20:13] LABS: Appearance Urine Clear (Clear); Bacteria Urine Automated None Seen (None Seen); Bilirubin Urine Negative (Negative); Blood Urine 1+ (Negative); Color Urine Yellow; Epithelial Cell Urine Auto 0-2 /hpf (0-2); Glucose Urine UA Negative (Negative); Ketones Urine Trace (Negative); Leukocyte Esterase Urine Negative (Negative); Nitrite Urine Negative (Negative); Protein Urine 1+ (Negative); RBC Urine Automated 0-2 /hpf (0-2); Specific Gravity Urine 1.025 (1.000-1.030); Urobilinogen Urine Negative (Negative); WBC Urine Automated 0-5 /hpf (0-5)
[2024-05-30] MEDS ORDERED: MELATONIN 3 MG TAB PO PRN (21:04)
[2024-05-30] MEDS ORDERED: ONDANSETRON INJ 2 MG/ML 2 ML VIAL IV PRN (21:04)
[2024-05-30] MEDS ORDERED: ALBUTEROL 0.5% NEB SOLN 2.5 MG/0.5 ML VIAL NEB PRN (21:04)
[2024-05-30] MEDS ORDERED: ALUMINUM/MAGNESIUM SUSP 30 ML UDC PO PRN (21:04)
[2024-05-30] MEDS ORDERED: ACETAMINOPHEN 325 MG TAB PO PRN (21:04)
[2024-05-30] MEDS: LACTATED RINGER'S 1,000 ML IV SCH (21:16)
[2024-05-30] MEDS: HEPARIN SOD 5,000 UNIT/0.5 ML VIAL SQ SCH (21:55)
[2024-05-31 06:39] VITALS: BP 122/74; TEMP 98.1
[2024-05-31 07:05] LABS: BUN Creatinine Ratio 38.8 (10-20); Calcium 8.7 mg/dl (8.6-10.3); Creatinine Clr Calc Pharmacy 92.4 ml/min
[2024-05-31] MEDS: OSELTAMIVIR PHOSPHATE SUSP 30 MG/5 ML UDP PO SCH (08:46)
[2024-05-31] MEDS: LOPERAMIDE HCL 2 MG CAP PO PRN (08:52)
[2024-05-31] MEDS: NON-FORMULARY MEDICATION (Aspirin 81 mg Tablet) PO SCH (11:24)
[2024-05-31] MEDS: ASPIRIN 81 MG ECTAB PO SCH (12:26)
[2024-05-31] MEDS: guaiFENesin 600 MG TABCR PO SCH (12:51)
[2024-05-31 12:53] VITALS: PULSE 100; RESP 18; O2SAT 95
[2024-05-31] MEDS ORDERED: OSELTAMIVIR PHOSPHATE 75 MG CAP PO SCH (21:00)
--- NOTE | 2024-06-02 18:45 | Discharge Summary ---
Discharge Summary Date of Service June 02, 2024 Principal Dx & Hospital Course #1 = Principal Diagnosis (1) Acute kidney injury: (2) Influenza: Plan Patient is a 54-year-old male PMHx severe BRINA, HLD, prediabetes, GERD, and HTN presenting to ED for ongoing cough for the past 4-5 days with associated diarrhea and SOB. States that he was sent to the ED from PCP office for elevated kidney function (05/29/2023). Patient with evidence of leukocytosis (10.94), creatinine 1.79, BUN 65, magnesium 2.5, and Pro-Theo 0.70. BioFire was positive for influenza A, but CXR reveals no acute findings. EKG was sinus tachycardia around 105 bpm, and stool studies were negative. Was provided with 2L NSS in ED as well as 2 albuterol nebulizers, Tylenol, and a dose of Tamiflu. #ANGY - prerenal from dehydration related to influenza, gastroenteritis - treated with IV saline and creatinine resolved to baseline 0.98, good urine output, maintaining good oral hydration - Hold olmesartan, eplerenone for now and resume in 1 week if no further diarrhea or dehydration # sepsis due to influenza A, acute gastroenteritis due to influenza A - Evidence of leukocytosis on admission (10K), procal mildly elevated 0.7, lactate WNL, BioFire positive influenza A, CXR without acute findings; blood cultures are negative as of 06/02 - hypotension tachycardia resolved with IV fluids - completing a course of Tamiflu - he had a lot of diarrhea which was caused by influenza, stool BioFire was negative for other infections, resolving at time of discharge and controlled with as needed Imodium - cough improved #HTN- Amlodipine 5mg- continue, hold olmesartan 40mg, Eplerenone 50mg BID for 1 week #Prediabetes- Managed with diet #BRINA, severe- BiPAP 07/12 BiFlex 2 - continue at night #HLD- continue rosuvastatin Admission HPI Per Admitting Provider Patient is a 54-year-old male PMHx severe BRINA, HLD, prediabetes, GERD, and HTN presenting to ED for ongoing cough for the past 4-5 days with associated diarrhea and SOB. States that he was sent to the ED from PCP office for elevated kidney function. Symptoms started approximately 5 days ago where he was having a cough with some yellow sputum production as well as shortness of breath. States that the shortness of breath slowly worsened over the past 5 days [employer] and was concerning to him because he felt that he could not even get up from his bed to the bathroom without becoming short of breath. States that throughout the course of the symptoms he did have feelings of being feverish but did not actually take his temperature. Is having some chest and belly pain but is only when he is coughing, and not at rest. Approximately 2 days [employer] the cough started to improve slightly, but approximately 3 days [employer] the patient started to have multiple bouts of diarrhea per day, reaching around 10 times per day or anytime that he would try to have any oral intake. Denies associated abdominal pain with this or nausea/vomiting. States that over the past week he has lost approximately 10 pounds because he has been unable to tolerate oral intake. Has felt weak since the symptoms started, but has not had any episodes of syncope or falls. Patient did not receive his influenza vaccine and does not routinely receive this vaccine. Patient's main concern is that his kidney function was reported to be poor by PCP which is why he came to the ED initially. ED evaluation reveals leukocytosis of 10.94, creatinine 1.79, BUN 65, ratio 36.5, magnesium 2.5, Pro-Theo 0.70, and BioFire positive for influenza A. Stool studies negative. CXR reveals no acute findings and EKG sinus tachycardia heart rate 105 bpm. Provided with 2L NSS, albuterol 3 mL nebs x 2, and acetaminophen 1 g IV in ED. Please see Dr. Johnson's attestation for adjustments/additions to treatment plan. Discharge Exam PHYSICAL EXAMINATION Last 24h vital signs reviewed, see documentation in flowsheet General: comfortable appearing, no distress HEENT: Normocephalic, atraumatic, pupils round and equal, sclerae anicteric, no conjunctival injection, moist mucus membranes Lungs: Normal respiratory effort. mildly coarse breath sounds scattered bilaterally, no wheezing, cough present Heart: Regular rate and rhythm, no murmurs. No JVD Abdomen: Soft, nontender, nondistended. Bowel sounds present. Extremities: Warm, dry, well-perfused. No extremity edema. Neuro: Alert and oriented x 4, face symmetric, moves 4 extremities well Psych: Normal affect and behavior Discharge Plan Discharge Items Patient Disposition: Home - Self-Care Reason For Visit: ANGY, FLU A Discharge Diagnosis: Influenza A gastroenteritis, mild ANGY Condition on Discharge: Good Activity: Resume your previous activity Non-emergency contact: Primary Care Provider Call non-emergency contact if: you have any medication questions and your symptoms worsen Follow-up/Referrals: Ernesto Padilla, [Primary Care Provider] - 06/07/24 11:00 am Diet: Carb Consistent or DM2 Addtl Attending Provider Instructions: You were treated for dehydration and mild kidney injury from diarrhea, Influenza A Your kidney function is back to normal after IV fluids Stay hydrated and use imodium as directed to control diarrhea - this is over the counter For mucus/chest congestion, guaifenex (guaifenasin) may be helpful Its ok to take nyquil or other over the counter cold/flu medicines, just avoid anything containing NSAIDS (ibuprofen, naproxen) for now because they could contribute to kidney injury. Acetaminophen / tylenol is safe for the kidneys Your stool testing was negative - the panel has 20+ viruses and bacteria on it, including E. coli and norovirus. We don't have a test for listeria in the stool, however, listeria gastroenteritis is self-limited for healthy adults and doesn't require antibiotics. It can be a problem for women and the very elderly or immunocompromised, otherwise we don't need to worry about it as long as you get better. We'll have you hold a few of your medications until next week (eplerenone and olmesartan) - you can restart them if you're feeling well and no further diarrhea or risk of dehydration I sent a prescription for four more days of tamiflu It was a pleasure taking care of you in the hospital, Mihaela Ortiz MD Pending Studies at Discharge: No Stand-Alone Forms: My [facility] Quri, Smoking Cessation Medications and DC Order Prescriptions: New oseltamivir [Tamiflu] 75 mg Capsule 75 mg PO BID Qty: 8 0RF Continued amlodipine 5 mg tablet 5 mg PO QAM aspirin [Children's Aspirin] 81 mg Tablet,Chewable 81 mg PO QAM Rx Instructions: now told to hold Held eplerenone [Inspra] 50 mg tablet 50 mg PO QAM Hold Instructions: Resume on 06/07/24. olmesartan 40 mg tablet 40 mg PO QAM Hold Instructions: Resume on 06/07/24. Discharge Orders: Discharge Order (Routine); Ordered 05/31/24 Ordered By: Mihaela Buchanan/Other Patient Handouts: The Flu (Influenza) Admission Data Admit Date/Time: 05/30/24 19:52 Attending Provider: Mihaela Ortiz Admit Provider: Agata Johnson Primary Care Provider: Ernesto Padilla Other Providers: Agata Johnson Other Interventions: Discharge Summary Assessment (RN) Last Done: 05/31/24 14:05 Hospital Stay Data Consultations 05/30/24 19:14 ED Decision to Admit Stat Pending Results Patient Have Any Pending Studies at Discharge: No Discharge Instructions Given to Patient (Per Discharging Provider) You were treated for dehydration and mild kidney injury from diarrhea, Influenza A Your kidney function is back to normal after IV fluids Stay hydrated and use imodium as directed to control diarrhea - this is over the counter For mucus/chest congestion, guaifenex (guaifenasin) may be helpful Its ok to take nyquil or other over the counter cold/flu medicines, just avoid anything containing NSAIDS (ibuprofen, naproxen) for now because they could contribute to kidney injury. Acetaminophen / tylenol is safe for the kidneys Your stool testing was negative - the panel has 20+ viruses and bacteria on it, including E. coli and norovirus. We don't have a test for listeria in the stool, however, listeria gastroenteritis is self-limited for healthy adults and doesn't require antibiotics. It can be a problem for women and the very elderly or immunocompromised, otherwise we don't need to worry about it as long as you get better. We'll have you hold a few of your medications until next week (eplerenone and olmesartan) - you can restart them if you're feeling well and no further diarrhea or risk of dehydration I sent a prescription for four more days of tamiflu It was a pleasure taking care of you in the hospital, Mihaela Ortiz MD Total Time Total Time Spent Total Time Spent (In Minutes): <30 Coding Level of Care Code 19528 IN/OBS DISCH 30 MIN/LESS Diagnoses Acute kidney injury N17.9 Influenza J11.1
--- NOTE | 2024-06-25 06:22 | Coding Query ---
To promote full compliance with coding requirements relating to patient care, provider participation is requested in all cases of log sorter uncertainty. Please assist us with the question(s) below: Coding Question(s): The diagnosis(es) below was documented in the Discharge Summary Report then subsequently fell off all further documentation. Please indicate if it is still a possible diagnosis or ruled out. Physician's Response(s): SEPSIS ( ) Diagnosed ( ) Diagnosed ( ) Ruled out ( XX) Other (please specify) Suspected sepsis due to vital signs, but sepsis workup had been delayed. Hospitalist did mention sepsis in discharge summary. Acute Gastroenteritis ( ) Diagnosed ( ) Diagnosed ( ) Ruled Out ( XX) Other (please specify) Presumed gastroenteritis secondary to influenza A as mentioned in hospitalist discharge summary MTDD
== END 2024-05-31 15:06 | disposition home or self-care (01) ==
LOC: ED 14:20 → 3E 14:20 → SUATTDRO 19:52 → 3E 20:42